=== PATIENT | female | born 1965 | race Hispanic/Latino ===

== ENCOUNTER 2019-08-12 21:50 | Emergency (ER) | payer MEDICAID ==
[2019-08-12] MEDS ORDERED: MORPHINE SULFATE 4 MG/1ML SYG ONE (22:48)
[2019-08-12] MEDS ORDERED: ONDANSETRON HCL 4 MG/2 ML VIAL ONE (22:48)
[2019-08-12 22:49] LABS: BASOPHILS % (AUTO) 0.8 % (0.0-5.0); EOSINOPHILS % (AUTO) 2.4 % (0.0-8.0); HEMATOCRIT 37.8 % (36-48); LYMPHOCYTES % (AUTO) 10.3 % (21.0-51.0); MEAN CORPUSCULAR HEMOGLOBIN 31.4 pg (27.0-33.0); MEAN CORPUSCULAR HGB CONC 33.5 g/dL (32.0-36.0); MEAN CORPUSCULAR VOLUME 93.8 fL (79-99); MONOCYTES % (AUTO) 7.1 % (3.0-13.0); NEUTROPHILS % (AUTO) 79.4 % (40.0-77.0); PLATELET COUNT (AUTO) 246 K/uL (130-400); RED BLOOD CELL COUNT(AUTO) 4.03 MIL/uL (4.00-5.50); RED CELL DISTRIBUTION WIDTH 15.1 % (11.0-15.5)
[2019-08-12] MEDS ORDERED: SODIUM CHLORIDE 0.9% 1000ML 1,000 ML IV ONE (22:49)
[2019-08-12 22:59] LABS: CREATININE 1.1 mg/dL (0.5-1.5)
[2019-08-12 23:04] LABS: ALBUMIN 3.4 g/dL (3.5-5.0); BILIRUBIN,TOTAL 0.2 mg/dL (0.2-1.0); TOTAL PROTEIN, SERUM 6.6 g/dL (6.0-8.3)
[2019-08-12] MEDS ORDERED: CEFTRIAXONE SODIUM 1 GM ONE (23:42)
[2019-08-12] MEDS ORDERED: KETOROLAC TROMETHAMINE 30MG/ML ONE (23:42)
== END 2019-08-13 00:41 | disposition home or self-care (01) ==
LOC: EDH 21:50
DX: K11.20 Sialoadenitis, unspecified (principal); R50.9 Fever, unspecified
CPT/HCPCS: 36415; 80053; 85025; 86735; 96374; 96375; 99284; J0696; J1885; J2270; J2405; J7030

== ENCOUNTER 2021-07-07 16:10 | Emergency (ER) | payer MEDICAID ==
[~2021-07-07] VITALS: Ht 152.4 cm; Wt 78.5 kg
[2021-07-07 16:12] VITALS: BP 139/85
[2021-07-07] MEDS ORDERED: LORAZEPAM 2 MG/ML 1 ML VIAL IM ONE (16:30)
[2021-07-07] MEDS ORDERED: HYDR-3421 PO (17:05)
[2021-07-07 17:17] VITALS: BP 143/62
== END 2021-07-07 17:36 | disposition home or self-care (01) ==
LOC: EDH 16:10
DX: F41.9 Anxiety disorder, unspecified (principal); Z91.14 Patient's other noncompliance with medication regimen; Z86.73 Personal history of transient ischemic attack (TIA), and cerebral infarction without residual deficits
CPT/HCPCS: 93005; 96372; 99283; J2060

== ENCOUNTER 2021-12-12 15:10 | Emergency (ER) | payer MEDICAID ==
[~2021-12-12] VITALS: Ht 157.5 cm; Wt 74.8 kg
[~2021-12-12 15:10] MED LIST: HYDR-3421 PO
[2021-12-12 17:37] VITALS: BP 110/62
[2021-12-12 18:05] LABS: APPEARANCE,URINE Clear (CLEAR); BILIRUBIN,URINE Negative (NEGATIVE); COLOR,URINE Yellow (YELLOW); GLUCOSE, URINE (UA) Negative (NEGATIVE); KETONES,URINE Negative (NEGATIVE); LEUKOCYTE ESTERASE ,URINE Negative (NEGATIVE); NITRATE,URINE Negative (NEGATIVE); OCCULT BLOOD,URINE Negative (NEGATIVE); PROTEIN,URINE Negative (NEGATIVE); UROBILINOGEN,URINE 0.2 mg/dL (0.2-1.0)
[2021-12-12] MEDS ORDERED: FLUT16H NASAL (18:06)
[2021-12-12] MEDS ORDERED: ACET-66 PO (18:06)
[2021-12-12] MEDS ORDERED: LORA10TA7 PO (18:06)
[2021-12-12 18:13] LABS: AMPHET/METH SCREEN,URINE NEGATIVE (NEGATIVE); BARBITURATE SCREEN, URINE NEGATIVE (NEGATIVE); BENZODIAZEPINES SCREEN,URINE POSITIVE (NEGATIVE); CANNABINOID SCREEN,URINE NEGATIVE (NEGATIVE); COCAINE SCREEN,URINE POSITIVE (NEGATIVE); OPIATE SCREEN,URINE NEGATIVE (NEGATIVE); PHENCYCLIDINE SCREEN,URINE NEGATIVE (NEGATIVE)
== END 2021-12-12 18:20 | disposition home or self-care (01) ==
LOC: EDH 15:10
DX: U07.1 COVID-19 (principal); I10 Essential (primary) hypertension; Z79.899 Other long term (current) drug therapy
CPT/HCPCS: 80305; 81003; 87635; 87804 ×2; 99284; C9803

== ENCOUNTER 2025-09-07 11:13 | Emergency (ER) | payer MEDICAID ==
[~2025-09-07] VITALS: Ht 152.4 cm; Wt 81.6 kg
[~2025-09-07 11:13] MED LIST changes: +ACET-66 PO; +FLUT16H NASAL; +LORA10TA7 PO
[2025-09-07 12:16] LABS: NUCLEATED RED BLOOD CELLS 0.0 % (0.0-0.19); PLATELET COUNT (AUTO) 246 K/uL (130-400); RED BLOOD CELL COUNT(AUTO) 3.92 MIL/uL (4.00-5.50); RED CELL DISTRIBUTION WIDTH 14.0 % (11.0-15.5); WHITE BLOOD COUNT (AUTO) 6.4 K/uL (4.8-10.8)
[2025-09-07 12:24] LABS: CREATININE 0.7 mg/dL (0.5-1.0); GLOMERULAR FILTR. RATE CALC 98.0 mL/min (>90); GLUCOSE,RANDOM 91.0 mg/dL (70-105); SODIUM SERUM 146.0 mmol/L (136-145); UREA NITROGEN, BLOOD 9.0 mg/dL (7-18)
--- NOTE | 2025-09-07 12:55 | HMCIMG ---
EXAM: CT Head Without IV contrast. CLINICAL HISTORY: fall TECHNIQUE: Axial computed tomography images of the head/brain without intravenous contrast. COMPARISON: None provided. FINDINGS: BRAIN: No evidence of acute hemorrhage. No mass lesion. No CT evidence for acute territorial infarct. No midline shift or extra-axial collections. VENTRICLES: No hydrocephalus. ORBITS: The orbits are unremarkable. SINUSES AND MASTOIDS: The paranasal sinuses and mastoid air cells are clear. BONES: No fracture. SOFT TISSUES: Mild scalp soft tissue swelling in the left posterior parietal region. IMPRESSION: No acute intracranial abnormality. Mild scalp soft tissue swelling in the left posterior parietal region. /[place]
[2025-09-07 13:03] LABS: BASOPHILS % (MANUAL) 1 % (0-2); EOSINOPHILS % (MANUAL) 6 % (1-6); LYMPHOCYTES % (MANUAL) 21 % (22-44); MONOCYTES % (MANUAL) 8 % (2-9); REACTIVE LYMPHOCYTES 2 % (0-0); SEGMENTED NEUTROPHILS % 62 % (40-70)
[2025-09-07 13:04] LABS: MAN.DIFF COMMENT-IMPRESSION MANUAL DIFFERENTIAL; PLATELET MORPHOLOGY COMMENT ADEQUATE
--- NOTE | 2025-09-07 13:12 | HMCIMG ---
EXAM: CT Cervical Spine Without IV contrast. CLINICAL HISTORY: fall TECHNIQUE: Axial computed tomography images of the cervical spine without intravenous contrast. Sagittal and coronal reformatted images were generated. COMPARISON: None provided. FINDINGS: ALIGNMENT: Straightening of the cervical spine which may be due to paraspinal muscle spasm. DEGENERATIVE CHANGES: Moderate degenerative change. SOFT TISSUES: The prevertebral soft tissues are within normal limits. BONES: No fracture or dislocation in the cervical spine. Postsurgical changes from posterior fusion of C2-T2 with intact hardware. IMPRESSION: 1. No fracture or dislocation in the cervical spine. 2. Postsurgical changes from posterior fusion of C2-T2 with intact hardware. 3. Straightening of the cervical spine which may be due to paraspinal muscle spasm. 4. Moderate degenerative change. /[place]
[2025-09-07 13:30] LABS: APPEARANCE,URINE CLEAR (CLEAR); GLUCOSE, URINE (UA) NEGATIVE (NEGATIVE); LEUKOCYTE ESTERASE ,URINE NEGATIVE Leu/uL (NEGATIVE); NITRATE,URINE NEGATIVE (NEGATIVE); OCCULT BLOOD,URINE NEGATIVE (NEGATIVE)
[2025-09-07 13:32] LABS: ADD UA MICROSCOPIC NO
--- NOTE | 2025-09-07 13:35 | ERN ---
General Chief Complaint: Mechanical Fall Stated Complaint: FALL Time Seen by MD: 11:19 History of Present Illness Initial Comments 60 year old female with a history of recurrent fall, chronic back pain presented with a chief complaint of neck pain secondary to fall this morning. She explains her fall was mechanical as she tripped and fell. She denied headache, loss of consciousness, dizziness, shortness of breath, chest pain and abdominal pain. Most recent fall was yesterday for which she went to [facility] and got evaluated. She has a walker in her home which she don't use it frequently. Allergies: Coded Allergies: No Known Drug Allergies (Unverified Allergy, Unknown, 07/07/21) Home Meds Active Scripts Loratadine (Loratadine) 10 Mg Tablet, 10 MG PO DAILY for 30 Days, #30 TAB Prov:ELIZABET CUEVAS MD 12/12/21 Fluticasone Propionate (Flonase Nasal [place]) 50 Mcg/[place], 50 MCG NASAL BID for 14 Days, #28 SPRAY Prov:ELIZABET CUEVAS MD 12/12/21 Acetaminophen (Tylenol) 500 Mg Tab, 500 MG PO Q6HPRN PRN for FEVER for 5 Days, # 30 TAB Prov:ELIZABET CUEVAS MD 12/12/21 Hydroxyzine HCl (Hydroxyzine HCl) 25 Mg Tablet, 25 MG PO TID PRN for 28, #28 TAB Prov:TULIO FREITAS 07/07/21 Past Medical History Past Medical History: Diabetes-Type II, High Cholesterol, Hypertension Past Surgical History: Other Surgical History Other: BACK AND NECK SX ROS Dictation CONSTITUTIONAL: No chills, no fever, no weakness, no diaphoresis, no malaise. HEAD/FACE: Abrasion on her forehead and nose EENT: No eye pain, no blurred vision, no tearing, no double vision, no ear pain, no ear discharge, no nose pain, no nasal congestion, no throat pain, no throat swelling, no mouth pain. RESPIRATORY: No cough, no orthopnea, SOB, no stridor, wheezing. CARDIOVASCULAR: No chest pain, no edema, no palpitations, no syncope. GASTROINTESTINAL/ABDOMINAL: No abdominal pain, no constipation, no diarrhea, no nausea, no vomiting. GENITOURINARY: No abnormal discharge, no dysuria, no frequent urination, no hematuria. No complaints of pain in the genitals. MUSCULOSKELETAL: Neck pain with stiffness. INTEGUMENTARY: No change in color, no change in hair/nails, no dryness, no lesion, no lumps, no rash. NEUROLOGICAL/PSYCH: No anxiety, not depressed, no emotional problem, no headache, no numbness, no pre-existing deficit, no history of seizures, no tremors HEMATOLOGIC/LYMPHATIC: Not anemic, no history of blood clots, no apparent bleeding, no bruising, glands not swollen. Physical Exam Physical Exam Dictation GENERAL APPEARANCE: Alert, oriented x3, obese. HEAD AND FACE: Abrasion on the forehead and nose. EYES: PERRL, pink conjunctivas, eyelid no trauma, anterior chamber clear. EARS: Pinnas intact and no signs of trauma or erythema. Ear canals clear and no discharge. TMs no erythema. NOSE: No discharge, no bleeding. OROPHARYNX: Mouth normal, teeth no caries, tongue pink. Pharynx clear, no erythema. Tonsils no exudates, no abscesses noted. Mucous membrane moist. NECK: Tenderness present, no thyromegaly, no masses, no JVD, no bruits. BREAST: Deferred. CHEST: No tenderness, no crepitus, no paradoxical movement, no retractions. LUNGS: Clear, well-ventilated, symmetric, no rales, wheezing, no rhonchi, no stridor, good breath sounds bilaterally. HEART: Regular rate, regular rhythm, no murmur, no gallops. VASCULAR: No peripheral edema. ABDOMEN: Soft, positive bowel sounds, nondistended, no guarding, nontender, no rebound, no masses no hepatomegaly, no splenomegaly, no Kwon's sign, no hernias. RECTAL: Deferred. GENITAL: Deferred. NEUROLOGICAL: Normal speech, gross motor function intact, gross sensory function intact. MUSCULOSKELETAL: Tenderness in the neck with restricted motion. EXTREMITIES: Nontender, full range of motion. Results Laboratory and Microbiology Lab and Micro Result Laboratory Tests Test 09/07/25 12:11 09/07/25 13:20 White Blood Count 6.4 K/uL (4.8-10.8) Red Blood Count 3.92 MIL/uL (4.00-5.50) L Hemoglobin 12.0 g/dL (12.0-16.0) Hematocrit 38.6 % (36-48) Mean Corpuscular Volume 98.5 fL (79-99) Mean Corpuscular Hemoglobin 30.6 pg (27.0-33.0) Mean Corpuscular Hemoglobin Concent 31.1 g/dL (32.0-36.0) L Red Cell Distribution Width 14.0 % (11.0-15.5) Platelet Count 246 K/uL (130-400) Mean Platelet Volume 10.9 fL (7.5-10.5) H Segmented Neutrophils % 62 % (40-70) Lymphocytes % (Manual) 21 % (22-44) L Monocytes % (Manual) 8 % (2-9) Eosinophils % (Manual) 6 % (1-6) Basophils % (Manual) 1 % (0-2) Nucleated Red Blood Cells 0.0 % (0.0-0.19) Differential Comment MANUAL DIFFERENTIAL Reactive Lymphocytes 2 % (0-0) H White Cell Morphology Comment Platelet Morphology Comment ADEQUATE Red Blood Cell Morphology HYPOCHROM CELLS 1+ Sodium Level 146 mmol/L (136-145) H Potassium Level 4.6 mmol/L (3.5-5.1) Chloride Level 108 mmol/L (101-111) Carbon Dioxide Level 31 mmol/L (21-32) Blood Urea Nitrogen 9 mg/dL (7-18) Creatinine 0.7 mg/dL (0.5-1.0) Glomerular Filtration Rate Calc 98 mL/min (>90) Random Glucose 91 mg/dL (70-105) Total Calcium 8.6 mg/dL (8.5-10.1) Urine Color LIGHT-YELLOW (YELLOW) Urine Appearance CLEAR (CLEAR) Urine pH 7.0 (5.0-8.0) Urine Specific [place] 1.007 (1.001-1.031) Urine Protein NEGATIVE mg/dL (NEGATIVE) Urine Glucose (UA) NEGATIVE mg/dL (NEGATIVE) Urine Ketones NEGATIVE mg/dL (NEGATIVE) Urine Occult Blood NEGATIVE (NEGATIVE) Urine Nitrate NEGATIVE (NEGATIVE) Urine Bilirubin NEGATIVE mg/dL (NEGATIVE) Urine Urobilinogen 0.2 mg/dL (0.2-1.0) Urine Leukocyte Esterase NEGATIVE Anne/uL [facility] Female presented with a chief complaint of neck pain and stiffness after she had a fall this morning. She explained her fall to be mechanical as she tripped. She has a walker at home which she did not use it frequently. She also has a history of chronic back pain and recurrent fall. She is hemodynamically stable. Labs for CBC, BMP, UA were unremarkable. CTA head did not reveal any acute intracranial abnormalities. C-spine did not revealed any fracture. Chest x-ray was negative for consolidation, pleural effusion and pneumothorax. X-ray pelvis did not reveal any acute fracture. She was given 2 mg morphine for the pain. She is stable to be discharged with follow up to her PCP in 5-7 days. ED Course Orders Procedure Category Date Status Time Ct Head/Brain W/O CT 09/07/25 Resulted Contrast 11:54 Ct Cervical Spine W/O CT 09/07/25 Resulted Contrast 11:54 Chest 1vw RAD 09/07/25 Resulted 11:54 Pelvis 1-2vws RAD 09/07/25 Resulted 11:54 Lumbar Spine 2-3vws RAD 09/07/25 Logged 11:54 Cbc W Manual Diff LAB 09/07/25 Complete 11:54 Urinalysis Profile LAB 09/07/25 Complete 11:54 Basic Metabolic Panel LAB 09/07/25 Complete 11:54 12 Lead Ekg Tracing- EKG 09/07/25 Complete Technical 11:54 Morphine 4mg Syg PHA 09/07/25 Complete (Morphine 4mg Syg) 12:00 Morphine 4mg Syg PHA 09/07/25 Complete (Morphine 4mg Syg) 14:00 Current Medications Medications (Trade) Dose Ordered Sig/Isatu Route PRN Reason Start Time Stop Time Status Last Admin Dose Admin Morphine Sulfate (morPHINE 4MG SYG) 2 mg ONCE ONCE IVP 09/07/25 12:00 09/07/25 12:02 DC 09/07/25 12:53 Morphine Sulfate (morPHINE 4MG SYG) 2 mg ONCE ONCE IVP 09/07/25 14:00 09/07/25 14:01 DC Vital Signs Date Time Temp Pulse Resp B/P (MAP) Pulse Ox O2 Delivery O2 Flow Rate FiO2 09/07/25 14:00 98.6 78 20 138/79 99 Room Air* 0 21 09/07/25 13:00 71 20 145/89 97 Room Air* 0 21 09/07/25 11:49 98.1 61 20 154/84 99 Room Air* 0 21 09/07/25 11:14 68 18 155/87 98 Room Air 0 DX & DISP Disposition: Discharge Departure Impression: Primary Impression: Fall Additional Impression: Neck pain, acute Condition: Stable Additional Instructions: Who presented to the ED at [facility] after a fall with neck pain. On evaluation, there was no acute fracture of the cervical spine and no acute i ntracranial abnormalities. -Please use walker with a special precaution while walking. -Follow up to PCP in 5-7 days Referrals: JASPAL DYER (PCP) ATTESTATION BY PHYSICIAN I have seen and examined the patient. I reviewed the documentation, medical decision making, and treatment plan as noted by the resident provider above. I agree with the findings and plan of care. Marisabel Baptiste SUNIL MD Sep 07, 2025 13:35 SABAS MCWILLIAMS DO Sep 07, 2025 15:54
--- NOTE | 2025-09-07 13:56 | EKG ---
[facility] Test Date: 2025-09-07 Test Time: 13:06:16 Pat Name: VICENTE BAIN Department: [facility] Room: Gender: F Designated Broker: [id number] : 1965 Requested By: LAISHA VILLEDA Order Number: [id number] Reading MD: Casey Schaefer Measurements Intervals [place] Rate: 54 P: 67 MD: 175 QRS: 20 QRSD: 91 T: 14 QT: 430 QTc: 396 Interpretive Statements Sinus rhythm Atrial premature complexes in couplets Compared to ECG 07/07/2021 16:15:42 Atrial premature complex(es) now present Sinus bradycardia no longer present Electronically Signed On 09-08-2025 06:59:22 CDT by Casey Schaefer Please click the below link to view image of tracing.
[2025-09-07 14:00] VITALS: BP 138/79; PULSE 78; RESP 20; TEMP 98.6; O2SAT 99
--- NOTE | 2025-09-07 14:29 | HMCIMG ---
EXAM: CR Chest, 1 View. CLINICAL HISTORY: Fall COMPARISON: November 13, 2015 FINDINGS: LUNGS: The lungs show no infiltrate or other acute finding. PLEURAL SPACES: No evidence of pleural effusion or pneumothorax. MEDIASTINUM: Cardiac size and mediastinal contours within normal limits. BONES: No aggressive appearing osseous lesion seen. IMPRESSION: No acute cardiopulmonary pathology is evident. /[place]
--- NOTE | 2025-09-07 14:35 | HMCIMG ---
EXAM: CR Pelvis, 1 View. CLINICAL HISTORY: Fall COMPARISON: None provided. FINDINGS: BONES: No acute fracture or aggressive appearing osseous lesion. JOINTS: No dislocation. The joint spaces are normal. SOFT TISSUES: The soft tissues are unremarkable. IMPRESSION: No acute osseous abnormality. /[place]
== END 2025-09-07 14:56 | disposition home or self-care (01) ==
LOC: EDH 11:13
DX: S00.81XA Abrasion of other part of head, initial encounter (principal); S00.31XA Abrasion of nose, initial encounter; M54.2 Cervicalgia; G89.29 Other chronic pain; E11.9 Type 2 diabetes mellitus without complications; E78.00 Pure hypercholesterolemia, unspecified; I10 Essential (primary) hypertension; W01.0XXA Fall on same level from slipping, tripping and stumbling without subsequent striking against object, initial encounter; Y93.89 Activity, other specified; Y92.89 Other specified places as the place of occurrence of the external cause; Y99.8 Other external cause status
CPT/HCPCS: 99285; 70450; 96374; 71045; 80048; 85025; 81003; 36415; 72170; 72125; 93005; J2270 ×2